=== PATIENT | male | born 2000 | race Caucasian/White ===

== ENCOUNTER 2022-06-09 14:09 | Emergency (ER) | payer OTHER, SELFPAY ==
[2022-06-09 14:22] VITALS: BP 139/68; PULSE 84; RESP 16; TEMP 36.8; O2SAT 99; BMI 26.4
--- NOTE | 2022-06-09 15:41 | ED_ITS ---
HPI - Back Pain/Injury <CHELSEY Murray - Last Filed: 06/09/22 15:47> General Chief Complaint: Back Pain/Injury Stated Complaint: excriciating lower back pain as of yest Time Seen by Provider: 06/09/22 15:26 Source: patient History of Present Illness HPI Narrative: This is a 22-year-old male presents emergency department complaining of back pain which was triggered by bending over and picking up a sudden yesterday. He states that he does a lot of weightlifting and this could have exacerbated it. He endorses some low back pain at baseline, denies any weakness, sensation changes, changes to his urination or defecation. He denies mobility deficit. Did not have any traumatic injury, states the pain came later and he has not had any injuries that he remembers. Denies any fever, chills, history of IV drug use. Related Data Previous Rx's Medication Instructions Recorded lidocaine 5 % topical patch 1 patch topical DAILY #15 ea 06/09/22 (Lidoderm) methocarbamol 500 mg tablet 500 mg PO TID PRN muscle spasm #20 06/09/22 tabs prednisone 20 mg tablet 20 mg PO DAILY #3 tabs 06/09/22 Allergies Allergy/AdvReac Type Severity Reaction Status Date / Time No Known Drug Allergies Allergy Verified 06/09/22 14:28 Review of Systems <CHELSEY Murray - Last Filed: 06/09/22 15:47> Review of Systems ROS Unobtainable: All systems reviewed & are unremarkable except as noted in HPI and below Patient History <CHELSEY Murray - Last Filed: 06/09/22 15:47> Social History Smoking Status: Never smoker Smoking Status: Never smoker Substance Use Type: does not use Exam <CHELSEY Murray - Last Filed: 06/09/22 15:47> Narrative Exam Narrative: Reviewed vitals signs and nursing notes. General: cooperative, comfortable, in no acute distress, well groomed, afebrile HEENT: symmetrical facial expressions, moist mucous membranes MSK: moves all extremities, neurovascularly intact, no weakness, normal tone, nontender over his lumbar spine, muscle tension present bilaterally without spasm, ambulatory with steady gait, Skin: brisk capillary refill, without pallor or erythema Neuro: normal speech and cognition, A&O x3, ambulatory, clear speech Psych: mental status is grossly normal, congruent mood, normal affect, pleasant and cooperative Initial Vital Signs Initial Vital Signs: Vital Signs Temperature 98.2 F 06/09/22 14:22 Pulse Rate 84 06/09/22 14:22 Respiratory Rate 16 06/09/22 14:22 Blood Pressure 139/68 06/09/22 14:22 Pulse Oximetry 99 06/09/22 14:22 Oxygen Delivery Method 06/09/22 14:22 <Polly Asif DO - Last Filed: 06/18/22 03:16> Initial Vital Signs Initial Vital Signs: Vital Signs Temperature 98.2 F 06/09/22 14:22 Pulse Rate 84 06/09/22 14:22 Respiratory Rate 16 06/09/22 14:22 Blood Pressure 139/68 06/09/22 14:22 Pulse Oximetry 99 06/09/22 14:22 Oxygen Delivery Method 06/09/22 14:22 Course <CHELSEY Murray - Last Filed: 06/09/22 15:47> Orders Ordered: Discontinued Medications Acetaminophen (Acetaminophen 325 Mg Tablet) 975 mg PO NOW ONE Stop: 06/09/22 15:34 Last Admin: 06/09/22 16:03 Dose: 975 mg Documented By: NIA Ketorolac Tromethamine (Ketorolac 10 Mg Tablet) 10 mg PO NOW ONE Stop: 06/09/22 15:34 Last Admin: 06/09/22 16:03 Dose: 10 mg Documented By: NIA Methocarbamol (Methocarbamol 500 Mg Tablet) 500 mg PO NOW ONE Stop: 06/09/22 15:34 Last Admin: 06/09/22 16:04 Dose: 500 mg Documented By: NIA Prednisone (Prednisone 20 Mg Tablet) 20 mg PO NOW ONE Stop: 06/09/22 15:43 Last Admin: 06/09/22 16:04 Dose: 20 mg Documented By: NIA Vital Signs Vital signs: Vital Signs - 8 hr 06/09/22 14:22 Temperature 98.2 F Pulse Rate 84 Respiratory Rate 16 Blood Pressure 139/68 Pulse Oximetry 99 Oxygen Delivery Method Room Air <Polly Asif DO - Last Filed: 06/18/22 03:16> Orders Ordered: Discontinued Medications Acetaminophen (Acetaminophen 325 Mg Tablet) 975 mg PO NOW ONE Stop: 06/09/22 15:34 Last Admin: 06/09/22 16:03 Dose: 975 mg Documented By: NIA Ketorolac Tromethamine (Ketorolac 10 Mg Tablet) 10 mg PO NOW ONE Stop: 06/09/22 15:34 Last Admin: 06/09/22 16:03 Dose: 10 mg Documented By: NIA Methocarbamol (Methocarbamol 500 Mg Tablet) 500 mg PO NOW ONE Stop: 06/09/22 15:34 Last Admin: 06/09/22 16:04 Dose: 500 mg Documented By: NIA Prednisone (Prednisone 20 Mg Tablet) 20 mg PO NOW ONE Stop: 06/09/22 15:43 Last Admin: 06/09/22 16:04 Dose: 20 mg Documented By: NIA Vital Signs Vital signs: Vital Signs - 8 hr 06/09/22 14:22 Temperature 98.2 F Pulse Rate 84 Respiratory Rate 16 Blood Pressure 139/68 Pulse Oximetry 99 Oxygen Delivery Method Room Air MDM - Back Pain/Injury <CHELSEY Murray - Last Filed: 06/09/22 15:47> [facility] Narrative Medical decision making narrative: Chief Complaint: low back pain Differential diagnosis considered include: disc injury/herniation w/radiculopathy, acute fracture, renal colic, pyelonephritis, degenerative disc disease, cauda equina, AAA, osteomyelitis, epidural abscess, degenerative ar thritis, spinal stenosis, trauma, ligamental injury, paraspinal or other muscular strain, chronic pain, osteoarthritis, and critical cord compression. I have reviewed the patient's vital signs and nursing notes as well as prior records if available. Course of care: Patient's back pain was triggered by bending over and picking episodic, he does not have weakness, tenderness over his spinal processes, history of IV drug use, fever chills or urinary/stool changes. I suspect likely musculoskeletal etiology strain/sprain and an acute exacerbation of chronic low back pain. Patient's straight leg raise test was positive. No back pain red flags on history or physical. No history of IV substance use, or bony tenderness to palpation, no trauma, no bony tenderness to palpation , afebrile, no CVAT, no urinary symptoms. No bowel or urinary incontinence or retention, no saddle anesthesia, no new/worsening distal weakness, decreased reflexes or foot drop. Pt is nontoxic appearing. Patient has soft tissue tenderness to palpation. Pt is neurovascularly intact distally, afebrile, without immunosuppression or evidence of infection, peritoneal signs, hypertensive crisis, incontinence, or meningeal signs. His encouraged to follow up with [facility] and given a work note for 3 days off of work this week. He understands to obtain a referral to physical therapy, get clearance for return to duty and orders for outpatient imaging as needed. Patient's symptoms improved over duration of stay with above-stated therapies. Social considerations that may affect disposition: none Questions are addressed and there is agreement with the plan and for follow-up. Patient is appropriate for outpatient management. MIPS: This encounter doesn't have any diagnosis' associated with MIPS criteria. Discharge Plan Departure Patient Disposition: Home Clinical Impression: Low back pain radiating to lower extremity Instructions: Lumbar Radiculopathy Activity Restrictions/Additional Instructions: *You have been diagnosed with low back pain injury with sciatica symptoms. This is likely due to a irritated nerve root. Please take ibuprofen 600 mg with Tylenol 650 mg every 6 hours with food and water and use something topical to treat your pain. Use cool and or warm compresses to help treat your comfort, avoid over stretching, exerting yourself, or worsening this pain. Please follow-up with [facility] for a referral to physical therapy and for clearance to return to duty. Please use the steroid to help decrease inflammation and take all of the medicine with food and water. You can return to work after 3 days of decreasing the strain and inflammation. *What to do: *Please continue to take your regular medications as directed. [x] New medication prescriptions sent to your pharmacy: [ [facility] ] [ ] New medication written as a paper prescription [ ] No new medications given *Please follow up with your primary care provider in 2-3 days, call for an appointment. Let them know you were seen in the Emergency Department and that we asked that you be seen for follow-up. We will electronically transmit a record of today's note if your PCP is in our system *If you do not have a primary care provider please contact [phone] to establish care with one of the [facility] primary care providers. *Return to Emergency Department if you should have any new, worsening, or concerning symptoms, such as [fever greater than 101F, chills, worsening pain, persistent vomiting or other bothersome symptoms]. Prescriptions: New methocarbamol 500 mg tablet 500 mg PO TID PRN (Reason: muscle spasm) Qty: 20 0RF lidocaine [Lidoderm] 5 % adhesive patch,medicated 1 patch topical DAILY Qty: 15 0RF Rx Instructions: leave on most painful area for up to 12 hrs prednisone 20 mg tablet 20 mg PO DAILY Qty: 3 0RF Referrals: ProviderVashti [Primary Care Provider] - Stand Alone Forms: Patient Portal/API, Work Release Note <Polly Asif DO - Last Filed: 06/18/22 03:16> Cosign ED Attending Silviaature Attestation: I was immediately available in the department for consultation. Documentation has been reviewed.
[2022-06-09] MEDS: KETOROLAC 10 MG TABLET PO (16:03)
[2022-06-09] MEDS: ACETAMINOPHEN 325 MG TABLET 975 MG PO (16:03)
[2022-06-09] MEDS: methocarbamoL 500 MG TABLET PO (16:04)
[2022-06-09] MEDS: predniSONE 20 MG TABLET PO (16:04)
[2022-06-09 16:08] VITALS: BP 131/60; PULSE 74; RESP 18; O2SAT 99
== END 2022-06-09 16:08 | disposition home or self-care (01) ==
PROVIDERS: Emergency Provider Nurse Practitioner Critical Care Medicine
DX: M54.16 Radiculopathy, lumbar region (principal)
CPT/HCPCS: 99283